=== PATIENT | female | born 1990 | race Caucasian/White ===

== ENCOUNTER 2024-09-20 09:53 | Outpatient (CLI) | payer BC, SELFPAY ==
--- NOTE | ~2024-09-20 | US_ITS ---
EXAMINATION: US OB /maternal detail DATE: 09/20/2024 20:17 GLASS GLAZIER INDICATION: Anatomy scan TECHNIQUE: Real-time transabdominal obstetric ultrasound. FINDINGS: 3 para 1 There is a single intrauterine gestation in vertex presentation. The placenta is anterior, 5 cm from the cervix. The cervix measures 4.1 cm in length. cardiac activity and movement is noted with a heart rate of 139 beats per minute. Anatomic parameters are as follows The bladder is visualized and is unremarkable. A three-vessel cord is present. Cord insertion is not clearly demonstrated to be on the midline on the submitted images for which fol low-up is needed. Bilateral kidneys are present without hydronephrosis. The diaphragm is continuous. The cervical, thoracic and lumbar spines are covered in their entirety. choroid plexi are visualized, and unremarkable. Lateral ventricles are visualized measuring 6.4 and 6.4 mm, respectively. The falx is visualized. The cerebellum is visualized although not measured and views of the cerebellum are limited. The cisterna magna measures 4.5 mm in anterior to posterior dimension (normal measurement is 2 to 10 mm). The nuchal fold is not included on the submitted images secondary to gestational age. Cine of the four-chamber heart is visualized and is anatomic. Both the right and left ventricular outflow tracts are likely unremarkable, but are poorly visualized on the submitted images. Limited views of the arms, hands, legs and feet were performed and appear grossly unremarkable. Upper and lower lips and nose are identified in continuity. The following biometric data were obtained: Biparietal diameter (BPD): 5.01 cm; head circumference (HC): 18.5 cm; abdominal circumference (AC): 15.9 cm; femur length (FL): 3.3 cm. These measurements are concordant. Estimated weight is 372.9 g +/- 55.9 g, which correlates with the 62nd percentile when is used as estimated date of delivery. As single measurements, these parameters are each equal to the following estimated gestational ages: BPD: 21 weeks 1 day. HC: 20 weeks 6 days. AC: 21 weeks 0 days. FL: 20 weeks 2 days. estimated gestational age based solely on measurements from this exam is 20 weeks 6 days +/- 1 week 3 days. IMPRESSION: Single intrauterine gestation with an approximate gestational age of 20 weeks and 6 days. Estimated d ue date by ultrasound is 02/01/2025 Follow-up anatomy scan to include the following: Right ventricular outflow tract Left ventricular outflow tract CORD insertion on the midline cerebellum images with measurements Nuchal fold imaging with measurements Reviewed, dictated and finalized at location A. S GLAZIER IMPRESSION: Single intrauterine gestation with an approximate gestational age of 20 weeks a nd 6 days. Estimated due date by ultrasound is 02/01/2025 Follow-up anatomy scan to include the following: Right ventricular outflow tract Left ventricular outflow tract CORD insertion on the midline cerebellum images with measurements Nuchal fold imaging with measurements
== END 2024-09-20 09:54 | disposition home or self-care (01) ==
PROVIDERS: PCP Obstetrics & Gynecology; Visit Provider Obstetrics & Gynecology
DX: Z36.9 Encounter for antenatal screening, unspecified (principal); Z3A.20 20 weeks gestation of pregnancy
CPT/HCPCS: 76805

== ENCOUNTER 2024-10-14 09:06 | Outpatient (CLI) | payer BC, SELFPAY ==
--- NOTE | ~2024-10-14 | US_ITS ---
EXAMINATION: US OB limited DATE: 10/14/2024 09:40 INDICATION: Incomplete anatomic survey. TECHNIQUE: Real-time ultrasound of the pelvis was performed. COMPARISON: Ultrasound 09/20/2024 FINDINGS: There is a single fetus in vertex presentation. The placenta is anterior, 7.3 cm in the cervix. Feta l heart rate is 140 beats per minute (bpm). The amniotic fluid volume is subjectively normal. The cer vical length is 5.5 cm on transabdominal images, which is normal. The cerebellum, cisterna magna, cord insertion, stomach, and heart are normal. IMPRESSION: 1. Single living fetus in vertex presentation. 2. Normal cerebellum, cisterna magna, cord insertion, stomach, and heart. Reviewed, dictated and finalized at location B.
== END 2024-10-14 09:07 | disposition home or self-care (01) ==
PROVIDERS: PCP Obstetrics & Gynecology; Visit Provider Obstetrics & Gynecology
DX: Z36.2 Encounter for other antenatal screening follow-up (principal); Z3A.00 Weeks of gestation of pregnancy not specified
CPT/HCPCS: 76815